=== PATIENT | male | born 1990 | race Caucasian/White ===

== ENCOUNTER → 2019-10-07 | Outpatient (CLI) | payer OTHER ==
--- NOTE | 2019-10-07 08:11 | RAD ---
HAND LEFT 3V 10/07/2019 12:00 AM INDICATION: Trauma to left wrist COMPARISON: None available. TECHNIQUE: 3 views the left hand are provided. FINDINGS/ IMPRESSION: 1. Overlapping cast/bandage material limits evaluation of fine osseous detail. 2. There is deformity of the distal aspect of the fifth metacarpal, possibly associated with remote healed fracture. Correlate with point tenderness as a definite fracture is not visualized. 3. Soft tissues are within normal limits. Electronically signed by: Karla Bojorquez MD (10/07/2019 8:08 AM) [id number]
== END ==
LOC: RAD 07:33
PROVIDERS: ATTEND Nurse Practitioner Adult Health
DX: S69.92XA Unspecified injury of left wrist, hand and finger(s), initial encounter (principal); M20.092 Other deformity of left finger(s); X58.XXXA Exposure to other specified factors, initial encounter; Y92.89 Other specified places as the place of occurrence of the external cause; Y93.89 Activity, other specified; Y99.8 Other external cause status
CPT/HCPCS: 73130